=== PATIENT | male | born 1985 | race Caucasian/White ===

== ENCOUNTER 2016-03-10 14:51 | Emergency (ER) | payer MEDICAID, OTHER ==
[2016-03-10] MEDS ORDERED: LIDOCAINE MPF 1%-EPI 1:200000 30 ML VIAL ONE (16:18)
[2016-03-10] MEDS ORDERED: LIDOCAINE 2%-EPI 1:100000 20 ML MDV SUBQ STA (16:18)
[2016-03-10] MEDS ORDERED: LIDOCAINE 2%-EPI 1:100000 20 ML MDV ONE (16:23)
[2016-03-10] MEDS ORDERED: SULFAMETH/TRIMETH DS 800/160 MG TABLET PO STA (16:35)
[2016-03-10] MEDS ORDERED: SULFAMETH/TRIMETH DS 800/160 MG TABLET PO ONE (16:40)
== END 2016-03-10 16:46 | disposition home or self-care (01) ==
DX: L02.414 Cutaneous abscess of left upper limb (principal); F15.10 Other stimulant abuse, uncomplicated; Z59.0 Homelessness
CPT/HCPCS: 10060; 87070; 87077; 87205; 99283; A9270

== ENCOUNTER 2016-03-14 | Emergency (ER) | payer MEDICAID | END 2016-03-14 15:33 | disposition home or self-care (01) ==

== ENCOUNTER 2016-03-30 | Outpatient (CLI) | payer MEDICAID | END 2016-03-30 09:14 | disposition critical access hospital (66) | CPT/HCPCS: A0425; A0429 ==

== ENCOUNTER 2016-03-30 09:30 | Emergency (ER) | payer MEDICAID ==
[2016-03-30] MEDS ORDERED: LIDOCAINE-MPF 1% 5 ML VIAL ONE ×2 (10:53→13:17)
== END 2016-03-30 15:18 | disposition home or self-care (01) ==
DX: S01.312A Laceration without foreign body of left ear, initial encounter (principal); X99.8XXA Assault by other sharp object, initial encounter; Z59.0 Homelessness